=== PATIENT | male | born 1950 | race Caucasian/White ===

== ENCOUNTER → 2024-04-19 06:27 | Day surgery (SDC) | payer OTHER, SELFPAY | LOC: GI 06:27 | PROVIDERS: ATTENDING PHYSICIAN Specialist; FAMILY PHYSICIAN Family Medicine | DX: K44.9 Diaphragmatic hernia without obstruction or gangrene (principal); K31.7 Polyp of stomach and duodenum; Z87.19 Personal history of other diseases of the digestive system | CPT/HCPCS: 43239; 88305 ==